=== PATIENT | male | born 1990 | race Caucasian/White ===

== ENCOUNTER 2023-12-26 09:09 | Outpatient (CLI) | payer OTHER ==
[2023-12-26] MEDS ORDERED: Iopamidol 300 61% 100 ML VIAL FS ONE (10:10)
== END 2023-12-26 09:10 | disposition home or self-care (01) ==
LOC: CSHCT 09:09
PROVIDERS: ATTEND Internal Medicine Critical Care Medicine
DX: R91.1 Solitary pulmonary nodule (principal); R91.8 Other nonspecific abnormal finding of lung field; K76.0 Fatty (change of) liver, not elsewhere classified
CPT/HCPCS: 71260